=== PATIENT | female | born 1955 | race Caucasian/White ===

== ENCOUNTER 2017-12-20 13:00 | Outpatient (CLI) | payer MEDICARE | END 2017-12-20 13:01 | disposition home or self-care (01) | LOC: BICRAD 13:00 | PROVIDERS: ATTEND Internal Medicine Rheumatology | DX: M81.0 Age-related osteoporosis without current pathological fracture (principal) | CPT/HCPCS: 72070 ==

== ENCOUNTER 2018-09-13 10:41 | Outpatient (CLI) | payer MEDICARE ==
--- NOTE | 2018-09-13 11:59 | RAD ---
THORACIC SPINE THREE VIEWS: History: Compression fracture. Follow up. Comparison: 12-20-17 FINDINGS: There are twelve thoracic type vertebrae. Pedicles are intact. S-shaped curvature on the frontal view . Mild compression of the T11 superior endplate is unchanged in appearance from the 12-20-17 study. Part ial compression of L1 also appears stable. IMPRESSION: Stable radiographic appearance of T11 and L1 partial compression fractures. POS: [facility]
--- NOTE | 2018-09-13 12:18 | RAD ---
LUMBAR SPINE 2 VIEWS: HISTORY: Followup fracture. COMPARISON: Radiograph from 08/22/2018. FINDINGS: There is a compression fracture of L1 with approximately 10-15% anterior height loss as well as a sup erior end plate Schmorl's node. This appears chronic. Likely an old T11 rib fracture. There is narrowing within the spinous processes of L3-L5. Mild levoscoliosis. Moderate phleboliths in the pelvis. IMPRESSION: Chronic findings. No acute abnormality. POS: [facility]
== END 2018-09-13 10:42 | disposition home or self-care (01) ==
LOC: TBSIIMAG 10:41
PROVIDERS: ATTEND Neurological Surgery
DX: M80.88XD Other osteoporosis with current pathological fracture, vertebra(e), subsequent encounter for fracture with routine healing (principal)
CPT/HCPCS: 72072; 72100